=== PATIENT | female | born 1935 | race Caucasian/White ===

== ENCOUNTER 2024-06-04 13:21 | Emergency (ER) | payer MEDICARE, OTHER ==
[~2024-06-04] VITALS: Ht 160 cm; Wt 54.2 kg
[2024-06-04 15:17] VITALS: TEMP 98
[2024-06-04 15:27] LABS: BASOPHILS # (AUTO) 0.1 X10'3 (0-0.2); BASOPHILS % (AUTO) 0.8 % (0-1); EOSINOPHILS # (AUTO) 0.5 X10'3 (0-0.9); EOSINOPHILS % (AUTO) 5.8 % (0-6); HEMATOCRIT 33.7 % (35.0-45.0); LYMPHOCYTES # (AUTO) 2.8 X10'3 (1.1-4.8); LYMPHOCYTES % (AUTO) 29.5 % (21-51); MEAN CORPUSCULAR HEMOGLOBIN 28.6 PG (27.0-31.0); MEAN CORPUSCULAR HGB CONC 32.6 g/dL (33.0-36.5); MEAN CORPUSCULAR VOLUME 87.9 FL (78-98); MEAN PLATELET VOLUME 6.5 FL (7.4-10.4); MONOCYTES # (AUTO) 1.1 X10'3 (0-0.9); MONOCYTES % (AUTO) 11.3 % (2-12); NEUTROPHILS # (AUTO) 4.9 X10'3 (1.8-7.7); NEUTROPHILS % (AUTO) 52.6 % (42-75); PLATELET COUNT 318 X10'3 (140-440); RED BLOOD COUNT 3.83 X10'6 (4.20-5.60); RED CELL DISTRIBUTION WIDTH 16.2 % (11.5-14.5); WHITE BLOOD COUNT 9.3 X10'3 (4.5-11.0)
[2024-06-04 15:57] LABS: ALBUMIN 3.6 G/DL (3.4-5.0); ANION GAP 5 (8-16); BLOOD UREA NITROGEN 41 MG/DL (7-18); BUN/CREATININE RATIO 36.9 (10.0-20.0); CALCIUM 9.5 MG/DL (8.5-10.1); CHLORIDE 101 MMOL/L (99-107); CREATININE 1.11 MG/DL (0.40-0.90); GLUCOSE 95 MG/DL (70-104); POTASSIUM 5.3 MMOL/L (3.5-5.1); PRO BRAIN NATRIURETIC PEPTIDE 420 PG/ML (0-450); SODIUM 132 MMOL/L (135-145); TOTAL CARBON DIOXIDE 26.5 MMOL/L (24-32); eCRCL 30 ML/MIN; eGFR 46 ML/MIN
[2024-06-04] MEDS ORDERED: CARV6.253 PO (17:04)
[2024-06-04] MEDS ORDERED: TIOT4MIS5 INH (17:04)
[2024-06-04] MEDS ORDERED: ATOR20TA PO (17:04)
[2024-06-04] MEDS ORDERED: PANT-47 PO (17:04)
[2024-06-04] MEDS ORDERED: DONE-46 PO (17:04)
[2024-06-04] MEDS ORDERED: ADV50500 INH (17:04)
[2024-06-04] MEDS ORDERED: MONT-40 PO (17:04)
[2024-06-04] MEDS: normal saline 1000ML IV soln IVB ONE (17:05)
[2024-06-04 17:09] VITALS: BP 101/83; PULSE 57; RESP 18; O2SAT 95
== END 2024-06-04 17:09 | disposition home or self-care (01) ==
LOC: ER 13:22
DX: E86.0 Dehydration (principal); R00.1 Bradycardia, unspecified; I25.10 Atherosclerotic heart disease of native coronary artery without angina pectoris; E78.00 Pure hypercholesterolemia, unspecified; Z88.2 Allergy status to sulfonamides; Z79.899 Other long term (current) drug therapy; Z79.51 Long term (current) use of inhaled steroids; Z95.1 Presence of aortocoronary bypass graft; Z98.890 Other specified postprocedural states
CPT/HCPCS: 36415; 71045; 80048; 83880; 84484; 85025; 93005; 99285

== ENCOUNTER 2024-07-20 17:32 | Inpatient (IN) | payer MEDICARE, OTHER ==
[~2024-07-20] VITALS: Ht 162.6 cm; Wt 54.5 kg
[~2024-07-20 17:32] MED LIST: ADV50500 INH; ATOR20TA PO; CARV6.253 PO; DONE-46 PO; MONT-40 PO; PANT-47 PO; TIOT4MIS5 INH
[2024-07-20 18:07] LABS: BASOPHILS % (AUTO) 0.2 % (0-1); EOSINOPHILS # (AUTO) 0.4 X10'3 (0-0.9); HEMATOCRIT 32.3 % (35.0-45.0); HEMOGLOBIN 10.2 g/dl (12.0-16.0); LYMPHOCYTES # (AUTO) 1.8 X10'3 (1.1-4.8); LYMPHOCYTES % (AUTO) 9.9 % (21-51); MEAN CORPUSCULAR HEMOGLOBIN 28.2 PG (27.0-31.0); MEAN CORPUSCULAR HGB CONC 31.6 g/dL (33.0-36.5); MEAN CORPUSCULAR VOLUME 89.4 FL (78-98); MEAN PLATELET VOLUME 6.9 FL (7.4-10.4); MONOCYTES # (AUTO) 1.5 X10'3 (0-0.9); MONOCYTES % (AUTO) 8.5 % (2-12); NEUTROPHILS # (AUTO) 14.3 X10'3 (1.8-7.7); NEUTROPHILS % (AUTO) 79.4 % (42-75); PLATELET COUNT 318 X10'3 (140-440); RED BLOOD COUNT 3.62 X10'6 (4.20-5.60)
[2024-07-20 18:42] LABS: ALBUMIN 2.8 G/DL (3.4-5.0); ANION GAP 13 (8-16); BLOOD UREA NITROGEN 28 MG/DL (7-18); BUN/CREATININE RATIO 26.7 (10.0-20.0); CALCIUM 8.5 MG/DL (8.5-10.1); CHLORIDE 97 MMOL/L (99-107); CREATININE 1.05 MG/DL (0.40-0.90); GLUCOSE 133 MG/DL (70-104); PRO BRAIN NATRIURETIC PEPTIDE 1179 PG/ML (0-450); SODIUM 131 MMOL/L (135-145); TOTAL CARBON DIOXIDE 21.3 MMOL/L (24-32); eCRCL 33 ML/MIN; eGFR 50 ML/MIN
[2024-07-20 20:15] LABS: BILIRUBIN,URINE NEGATIVE (Neg); CLARITY,URINE SLIGHTLY CLOUDY (Clear); COLOR,URINE YELLOW (Yellow); GLUCOSE, URINE NEGATIVE (Neg); KETONES,URINE NEGATIVE (Neg); LEUKOCYTE ESTERASE ,URINE MODERATE (Neg); NITRITES, URINE NEGATIVE (Neg); OCCULT BLOOD,URINE TRACE-INTACT (Neg); PROTEIN,URINE NEGATIVE (Neg); UROBILINOGEN,URINE 0.2 E.U/dL (0.2-1.0)
[2024-07-20] MEDS: ondansetron/PF 4mg/2ml inj IV ONE (20:15)
[2024-07-20] MEDS: normal saline 1000ml 1,000 ML IV ONE (20:21)
[2024-07-20 20:22] LABS: UA COLLECTION TYPE CLN CATCH MIDSTREAM
[2024-07-20 20:25] LABS: BACTERIA,URINE 1+ /HPF (Neg); MUCUS STRANDS FEW /LPF (Neg); RBC,URINE 0-2 /HPF (0-2); SQUAMOUS EPITHELIAL CELL,UR MODERATE /LPF (FEW); TRANSITIONAL EPI CELLS,URINE FEW /HPF; WBC CLUMPS,URINE FEW /HPF (NEGATIVE)
[2024-07-20] MEDS ORDERED: ipratropium/albuterol 3ml nebule NEB PRN (20:55)
[2024-07-20] MEDS ORDERED: acetaminophen 325mg tablet PO PRN (20:55)
[2024-07-20] MEDS ORDERED: morphine 2 MG/ML inj. syringe IV PRN (20:55)
[2024-07-20] MEDS ORDERED: potassium Cl 20 mEq SR tablet PO PRN ×2 (20:55)
[2024-07-20] MEDS ORDERED: magnesium sulf-water 2g/50mL 50 ML IV PRN (20:55)
[2024-07-20] MEDS ORDERED: mag hydrox/Alum hydrox/simeth 30ml oral suspension PO PRN (20:55)
[2024-07-20] MEDS ORDERED: magnesium sulf-water 4G/100mL 100 ML IV PRN (20:55)
[2024-07-20] MEDS ORDERED: magnesium Cl slow-release 64mg tablet PO PRN (20:55)
[2024-07-20] MEDS ORDERED: magnesium hydroxide 30ml (MOM) UD suspension PO PRN (20:55)
[2024-07-20] MEDS ORDERED: potassium Cl 40MEQ/1/2NS 520ml 520 ML IV PRN (20:55)
[2024-07-20] MEDS ORDERED: ondansetron/PF 4mg/2ml inj IV PRN (20:55)
[2024-07-20] MEDS: CefTRIAXone/D5W-Rocephin 1gm 50 ML IV ONE (21:00)
[2024-07-20 21:36] LABS: MAGNESIUM 1.6 MG/DL (1.5-2.4); PHOSPHORUS 2.5 MG/DL (2.3-4.5)
[2024-07-20 21:50] VITALS: PULSE 89; RESP 18; O2SAT 94
[2024-07-20] MEDS: normal saline 1000ml 1,000 ML IV SCH (22:09)
[2024-07-20] MEDS: predniSONE 20 mg tablet PO SCH (22:10)
[2024-07-20] MEDS: azithromycin/NS 500mg/250ml 250 ML IV ONE (22:10)
[2024-07-21] VITALS (18 sets, daily range): BP systolic 136–151; BP diastolic 45–46; PULSE 66–91; RESP 14–22; TEMP 97.2–98.6; O2SAT 91–97
[2024-07-21] MEDS: ipratropium/albuterol 3ml nebule NEB SCH ×2 (00:13→11:53)
[2024-07-21] MEDS: ipratropium 0.5 MG/2.5ML nebule NEB SCH ×2 (03:00→11:49)
[2024-07-21 03:11] LABS: BASOPHILS % (AUTO) 0.2 % (0-1); EOSINOPHILS % (AUTO) 0 % (0-6); HEMATOCRIT 29.5 % (35.0-45.0); HEMOGLOBIN 9.4 g/dl (12.0-16.0); LYMPHOCYTES # (AUTO) 1.1 X10'3 (1.1-4.8); MEAN CORPUSCULAR HEMOGLOBIN 28.4 PG (27.0-31.0); MEAN CORPUSCULAR HGB CONC 31.9 g/dL (33.0-36.5); MEAN CORPUSCULAR VOLUME 89.3 FL (78-98); MEAN PLATELET VOLUME 7.2 FL (7.4-10.4); MONOCYTES % (AUTO) 5.7 % (2-12); NEUTROPHILS # (AUTO) 16.2 X10'3 (1.8-7.7); NEUTROPHILS % (AUTO) 88.1 % (42-75); PLATELET COUNT 293 X10'3 (140-440); RED CELL DISTRIBUTION WIDTH 15.4 % (11.5-14.5); WHITE BLOOD COUNT 18.4 X10'3 (4.5-11.0)
[2024-07-21 03:17] LABS: ALBUMIN 2.4 G/DL (3.4-5.0); ANION GAP 8 (8-16); BLOOD UREA NITROGEN 20 MG/DL (7-18); BUN/CREATININE RATIO 25.6 (10.0-20.0); CALCIUM 8.3 MG/DL (8.5-10.1); CHLORIDE 103 MMOL/L (99-107); CREATININE 0.78 MG/DL (0.40-0.90); GLUCOSE 134 MG/DL (70-104); POTASSIUM 4.7 MMOL/L (3.5-5.1); SODIUM 133 MMOL/L (135-145); TOTAL CARBON DIOXIDE 21.9 MMOL/L (24-32); eCRCL 44 ML/MIN; eGFR 70 ML/MIN
[2024-07-21] MEDS: SALMETEROL IH SCH (08:00)
[2024-07-21] MEDS: K and/or MAG REPLACEMENT MC SCH (08:00)
[2024-07-21] MEDS: FLUTICASONE IH SCH (08:00)
[2024-07-21] MEDS: CefTRIAXone/D5W-Rocephin 1gm 50 ML IV SCH (09:45)
[2024-07-21] MEDS: heparin, porcine 5000 units/ml vial SQ SCH (09:46)
[2024-07-21] MEDS: pantoprazole 40mg Tablet.DR PO SCH (09:46)
[2024-07-21] MEDS: carvedilol 6.25mg tablet PO SCH (09:46)
[2024-07-21] MEDS: azithromycin 250mg tablet PO SCH (10:04)
[2024-07-21] MEDS: donepezil 5mg tablet PO SCH (21:47)
[2024-07-21] MEDS: atorvastatin 20mg tablet PO SCH (21:48)
[2024-07-22] VITALS (9 sets, daily range): BP systolic 176–186; BP diastolic 63–66; PULSE 62–82; RESP 16–24; O2SAT 88–95
[2024-07-22] MEDS: morphine 2 MG/ML inj. syringe IV PRN (01:29)
[2024-07-22] MEDS ORDERED: guaiFENesin/DM 10ml UD oral syrup PO PRN (01:40)
[2024-07-22 07:05] LABS: BASOPHILS % (AUTO) 0.1 % (0-1); EOSINOPHILS % (AUTO) 0 % (0-6); HEMATOCRIT 26.1 % (35.0-45.0); HEMOGLOBIN 8.5 g/dl (12.0-16.0); LYMPHOCYTES # (AUTO) 1.1 X10'3 (1.1-4.8); LYMPHOCYTES % (AUTO) 6.7 % (21-51); MEAN CORPUSCULAR HEMOGLOBIN 28.6 PG (27.0-31.0); MEAN CORPUSCULAR HGB CONC 32.6 g/dL (33.0-36.5); MONOCYTES # (AUTO) 0.7 X10'3 (0-0.9); MONOCYTES % (AUTO) 4.1 % (2-12); NEUTROPHILS % (AUTO) 89.1 % (42-75); PLATELET COUNT 312 X10'3 (140-440); RED BLOOD COUNT 2.96 X10'6 (4.20-5.60); WHITE BLOOD COUNT 16.8 X10'3 (4.5-11.0)
[2024-07-22 07:18] LABS: ALBUMIN 2.3 G/DL (3.4-5.0); ANION GAP 8 (8-16); BLOOD UREA NITROGEN 18 MG/DL (7-18); BUN/CREATININE RATIO 23.4 (10.0-20.0); CALCIUM 8.4 MG/DL (8.5-10.1); CHLORIDE 108 MMOL/L (99-107); CREATININE 0.77 MG/DL (0.40-0.90); GLUCOSE 152 MG/DL (70-104); POTASSIUM 4.5 MMOL/L (3.5-5.1); SODIUM 137 MMOL/L (135-145); TOTAL CARBON DIOXIDE 21.2 MMOL/L (24-32); eCRCL 44 ML/MIN; eGFR 71 ML/MIN
[2024-07-22] MEDS: LIDOcaine 5% patch TP SCH (08:00)
[2024-07-22] MEDS: azithromycin 250mg tablet PO SCH (08:00)
[2024-07-22] MEDS: amLODIPine 5mg tablet PO SCH (10:08)
[2024-07-22] MEDS ORDERED: NOR5T PO (12:13)
[2024-07-22] MEDS ORDERED: CEFD300C3 PO (12:13)
[2024-07-22] MEDS ORDERED: PRED20TA PO (12:13)
[2024-07-22] MEDS ORDERED: AZI25OT PO (12:13)
[2024-07-22] MEDS ORDERED: LACT1CAP26 PO (12:13)
== END 2024-07-22 15:16 | disposition home or self-care (01) | DRG 871 ==
LOC: ER 17:33 → ED HOLD 21:01 → ORTHO 4S 07-21 07:07
PROVIDERS: ADMIT Internal Medicine Critical Care Medicine; ATTEND Family Medicine
DX: A41.9 Sepsis, unspecified organism (principal); J18.9 Pneumonia, unspecified organism; J96.21 Acute and chronic respiratory failure with hypoxia; M48.56XA Collapsed vertebra, not elsewhere classified, lumbar region, initial encounter for fracture; J44.0 Chronic obstructive pulmonary disease with (acute) lower respiratory infection; J44.1 Chronic obstructive pulmonary disease with (acute) exacerbation; K21.9 Gastro-esophageal reflux disease without esophagitis; E78.00 Pure hypercholesterolemia, unspecified; E86.0 Dehydration; I25.10 Atherosclerotic heart disease of native coronary artery without angina pectoris; Z20.822 Contact with and (suspected) exposure to COVID-19; T21.24XA Burn of second degree of lower back, initial encounter; X08.8XXA Exposure to other specified smoke, fire and flames, initial encounter; Y93.89 Activity, other specified; Y92.89 Other specified places as the place of occurrence of the external cause; Y99.8 Other external cause status; Z88.2 Allergy status to sulfonamides; Z79.899 Other long term (current) drug therapy; Z95.1 Presence of aortocoronary bypass graft
CPT/HCPCS: 36415; 71046; 72148; 74176; 80048; 81001; 83605; 83735; 83880; 84100; 84145; 84484; 85025; 87040; 87088; 87502; 87503; 87811; 94640; 94760; 97116; 97161; 97530; 99285; A4615; A6212; A6223; G0378; J0456; J0696; J1644; J2270; J7030; J7512

== ENCOUNTER 2024-07-27 18:53 | Inpatient (IN) | payer MEDICARE, OTHER ==
[~2024-07-27] VITALS: Ht 162.6 cm; Wt 56.4 kg
[~2024-07-27 18:53] MED LIST changes: +AZI25OT PO; +CEFD300C3 PO; +LACT1CAP26 PO; +NOR5T PO; +PRED20TA PO
[2024-07-27 19:31] LABS: BASOPHILS # (AUTO) 0.1 X10'3 (0-0.2); BASOPHILS % (AUTO) 0.6 % (0-1); EOSINOPHILS # (AUTO) 0.9 X10'3 (0-0.9); EOSINOPHILS % (AUTO) 6.7 % (0-6); HEMATOCRIT 28.6 % (35.0-45.0); HEMOGLOBIN 9.3 g/dl (12.0-16.0); LYMPHOCYTES % (AUTO) 15.6 % (21-51); MEAN CORPUSCULAR HEMOGLOBIN 28.5 PG (27.0-31.0); MEAN CORPUSCULAR HGB CONC 32.4 g/dL (33.0-36.5); MEAN CORPUSCULAR VOLUME 87.9 FL (78-98); MEAN PLATELET VOLUME 6.1 FL (7.4-10.4); MONOCYTES # (AUTO) 1.3 X10'3 (0-0.9); NEUTROPHILS # (AUTO) 8.7 X10'3 (1.8-7.7); NEUTROPHILS % (AUTO) 67.1 % (42-75); PLATELET COUNT 416 X10'3 (140-440); RED BLOOD COUNT 3.26 X10'6 (4.20-5.60); RED CELL DISTRIBUTION WIDTH 15.1 % (11.5-14.5); WHITE BLOOD COUNT 12.9 X10'3 (4.5-11.0)
[2024-07-27 19:47] LABS: ALANINE AMINOTRANSFERASE 23 U/L (12-78); ALBUMIN 2.5 G/DL (3.4-5.0); ALBUMIN/GLOBULIN RATIO 0.7 (1.1-1.5); ALKALINE PHOSPHATASE 85 IU/L (46-116); ANION GAP 7 (8-16); ASPARTATE AMINO TRANSFERASE 14 U/L (10-37); BILIRUBIN,TOTAL 0.3 MG/DL (0.1-1.0); BLOOD UREA NITROGEN 29 MG/DL (7-18); BUN/CREATININE RATIO 27.1 (10.0-20.0); CALCIUM 8.2 MG/DL (8.5-10.1); CHLORIDE 102 MMOL/L (99-107); CREATININE 1.07 MG/DL (0.40-0.90); GLUCOSE 100 MG/DL (70-104); SODIUM 134 MMOL/L (135-145); TOTAL CARBON DIOXIDE 24.8 MMOL/L (24-32); TOTAL PROTEIN 6.2 G/DL (6.4-8.2); eCRCL 32 ML/MIN; eGFR 49 ML/MIN
[2024-07-27 19:55] LABS: PRO BRAIN NATRIURETIC PEPTIDE 1640 PG/ML (0-450)
[2024-07-27] MEDS ORDERED: iohexol 350MG/ML 100ml bottle IV ONE (20:34)
[2024-07-27] MEDS: normal saline 1000ML IV soln IVB ONE (20:59)
[2024-07-27] MEDS: acetaminophen 1,000mg/100ml IV 100 ML IV ONE (22:05)
[2024-07-27] MEDS: CefTRIAXone/D5W-Rocephin 1gm 50 ML IV ONE (22:18)
[2024-07-27] MEDS ORDERED: magnesium hydroxide 30ml (MOM) UD suspension PO PRN (22:45)
[2024-07-27] MEDS ORDERED: mag hydrox/Alum hydrox/simeth 30ml oral suspension PO PRN (22:45)
[2024-07-27] MEDS ORDERED: acetaminophen 325mg tablet PO PRN (22:45)
[2024-07-27] MEDS ORDERED: magnesium sulf-water 4G/100mL 100 ML IV PRN (22:45)
[2024-07-27] MEDS ORDERED: potassium Cl 40MEQ/1/2NS 520ml 520 ML IV PRN (22:45)
[2024-07-27] MEDS ORDERED: guaiFENesin/DM/phenylephrine syrup 120ml bottle PO PRN (22:45)
[2024-07-27] MEDS ORDERED: magnesium sulf-water 2g/50mL 50 ML IV PRN (22:45)
[2024-07-27] MEDS ORDERED: ondansetron/PF 4mg/2ml inj IV PRN (22:45)
[2024-07-27] MEDS: ipratropium/albuterol 3ml nebule NEB SCH (23:00)
[2024-07-27] MEDS: guaiFENesin/DM 10ml UD oral syrup PO PRN (23:20)
[2024-07-27] MEDS: normal saline 1000ml 1,000 ML IV SCH (23:22)
[2024-07-28] VITALS (18 sets, daily range): BP systolic 131–159; BP diastolic 35–52; PULSE 61–77; RESP 15–24; TEMP 98–99; O2SAT 93–100
[2024-07-28] MEDS: piperacillin/tazo 4.5gm/100ml 100 ML IV SCH (04:46)
[2024-07-28] MEDS ORDERED: PERFLUTREN PROTEIN-A MICROSPHR (Optison) 0.22 MG/ML 3ML VIAL IV ONE (07:10)
[2024-07-28 07:46] LABS: BASOPHILS % (AUTO) 0.4 % (0-1); EOSINOPHILS # (AUTO) 1.1 X10'3 (0-0.9); EOSINOPHILS % (AUTO) 12.1 % (0-6); HEMATOCRIT 30.4 % (35.0-45.0); HEMOGLOBIN 9.7 g/dl (12.0-16.0); LYMPHOCYTES # (AUTO) 1.7 X10'3 (1.1-4.8); LYMPHOCYTES % (AUTO) 17.8 % (21-51); MEAN CORPUSCULAR HEMOGLOBIN 28.3 PG (27.0-31.0); MEAN CORPUSCULAR HGB CONC 31.9 g/dL (33.0-36.5); MEAN CORPUSCULAR VOLUME 88.8 FL (78-98); MEAN PLATELET VOLUME 6.3 FL (7.4-10.4); MONOCYTES # (AUTO) 1.1 X10'3 (0-0.9); MONOCYTES % (AUTO) 12.1 % (2-12); NEUTROPHILS # (AUTO) 5.4 X10'3 (1.8-7.7); NEUTROPHILS % (AUTO) 57.6 % (42-75); PLATELET COUNT 438 X10'3 (140-440); RED BLOOD COUNT 3.42 X10'6 (4.20-5.60); RED CELL DISTRIBUTION WIDTH 15.2 % (11.5-14.5); WHITE BLOOD COUNT 9.4 X10'3 (4.5-11.0)
[2024-07-28 07:51] LABS: ALANINE AMINOTRANSFERASE 20 U/L (12-78); ALBUMIN 2.3 G/DL (3.4-5.0); ALBUMIN/GLOBULIN RATIO 0.6 (1.1-1.5); ALKALINE PHOSPHATASE 78 IU/L (46-116); ANION GAP 11 (8-16); ASPARTATE AMINO TRANSFERASE 15 U/L (10-37); BILIRUBIN,TOTAL 0.3 MG/DL (0.1-1.0); BLOOD UREA NITROGEN 21 MG/DL (7-18); BUN/CREATININE RATIO 21.9 (10.0-20.0); CALCIUM 8.3 MG/DL (8.5-10.1); CHLORIDE 102 MMOL/L (99-107); CREATININE 0.96 MG/DL (0.40-0.90); GLUCOSE 99 MG/DL (70-104); MAGNESIUM 1.5 MG/DL (1.5-2.4); POTASSIUM 3.7 MMOL/L (3.5-5.1); SODIUM 139 MMOL/L (135-145); TOTAL CARBON DIOXIDE 25.9 MMOL/L (24-32); TOTAL PROTEIN 6.2 G/DL (6.4-8.2); eCRCL 36 ML/MIN; eGFR 55 ML/MIN
[2024-07-28] MEDS: amLODIPine 5mg tablet PO SCH (08:00)
[2024-07-28] MEDS: carvedilol 6.25mg tablet PO SCH (08:00)
[2024-07-28] MEDS: K and/or MAG REPLACEMENT MC SCH (08:00)
[2024-07-28] MEDS ORDERED: CefTRIAXone 2gm/D5W 50ml BAG 50 ML IV SCH (08:00)
[2024-07-28] MEDS: docusate sod 100mg capsule PO SCH (08:22)
[2024-07-28] MEDS: furosemide 40mg/4ml inj IV SCH (08:22)
[2024-07-28] MEDS: pantoprazole 40mg Tablet.DR PO SCH (08:22)
[2024-07-28] MEDS: prednisone 10mg tablet PO SCH (08:23)
[2024-07-28] MEDS: CefTRIAXone 2gm/D5W 50ml BAG 50 ML IV SCH (12:53)
[2024-07-28] MEDS: atorvastatin 20mg tablet PO SCH (20:58)
[2024-07-28] MEDS: enoxaparin 40mg/0.4ml syringe SQ SCH (21:02)
[2024-07-28] MEDS: donepezil 5mg tablet PO SCH (21:47)
[2024-07-28] MEDS: Melatonin 3mg tablet PO SCH (23:50)
[2024-07-29] VITALS (8 sets, daily range): BP systolic 133–134; BP diastolic 43–50; PULSE 60–68; RESP 13–24; TEMP 97.7–98.1; O2SAT 88–99
[2024-07-29] MEDS: montelukast 10mg tablet PO SCH (00:39)
[2024-07-29] MEDS: gabapentin 100mg capsule PO SCH (00:40)
[2024-07-29] MEDS: Melatonin 3mg tablet PO ONE (00:40)
[2024-07-29] MEDS: gabapentin 100mg capsule PO ONE (00:43)
[2024-07-29 07:09] LABS: BASOPHILS % (AUTO) 0.3 % (0-1); EOSINOPHILS # (AUTO) 0.1 X10'3 (0-0.9); EOSINOPHILS % (AUTO) 1.4 % (0-6); HEMATOCRIT 26.4 % (35.0-45.0); HEMOGLOBIN 8.8 g/dl (12.0-16.0); LYMPHOCYTES # (AUTO) 2.2 X10'3 (1.1-4.8); LYMPHOCYTES % (AUTO) 30.1 % (21-51); MEAN CORPUSCULAR HGB CONC 33.2 g/dL (33.0-36.5); MEAN CORPUSCULAR VOLUME 87.3 FL (78-98); MEAN PLATELET VOLUME 6.3 FL (7.4-10.4); MONOCYTES # (AUTO) 0.9 X10'3 (0-0.9); MONOCYTES % (AUTO) 11.6 % (2-12); NEUTROPHILS # (AUTO) 4.2 X10'3 (1.8-7.7); NEUTROPHILS % (AUTO) 56.6 % (42-75); PLATELET COUNT 411 X10'3 (140-440); RED BLOOD COUNT 3.03 X10'6 (4.20-5.60); WHITE BLOOD COUNT 7.4 X10'3 (4.5-11.0)
[2024-07-29 07:30] LABS: ALANINE AMINOTRANSFERASE 19 U/L (12-78); ALBUMIN 2.3 G/DL (3.4-5.0); ALBUMIN/GLOBULIN RATIO 0.6 (1.1-1.5); ALKALINE PHOSPHATASE 70 IU/L (46-116); ANION GAP 10 (8-16); ASPARTATE AMINO TRANSFERASE 17 U/L (10-37); BILIRUBIN,TOTAL 0.3 MG/DL (0.1-1.0); BLOOD UREA NITROGEN 18 MG/DL (7-18); BUN/CREATININE RATIO 17.8 (10.0-20.0); CALCIUM 8.1 MG/DL (8.5-10.1); CHLORIDE 102 MMOL/L (99-107); CREATININE 1.01 MG/DL (0.40-0.90); GLUCOSE 113 MG/DL (70-104); MAGNESIUM 1.4 MG/DL (1.5-2.4); POTASSIUM 3.3 MMOL/L (3.5-5.1); SODIUM 137 MMOL/L (135-145); TOTAL CARBON DIOXIDE 24.9 MMOL/L (24-32); TOTAL PROTEIN 6.2 G/DL (6.4-8.2); eCRCL 34 ML/MIN; eGFR 52 ML/MIN
[2024-07-29] MEDS: magnesium Cl slow-release 64mg tablet PO PRN (08:52)
[2024-07-29] MEDS: potassium Cl 20 mEq SR tablet PO PRN ×2 (08:52→13:33)
[2024-07-29] MEDS: furosemide 20 MG/2 ML vial IV SCH (09:40)
[2024-07-29] MEDS ORDERED: LEVO-65 PO (12:05)
[2024-07-29] MEDS ORDERED: FURO-150 PO (12:05)
[2024-07-29] MEDS ORDERED: PRED10TA23 PO (12:05)
[2024-07-29] MEDS ORDERED: gabapentin 100mg capsule PO SCH (21:00)
== END 2024-07-29 13:37 | disposition home or self-care (01) | DRG 291 ==
LOC: ER 18:54 → ED HOLD 22:56 → ORTHO 4S 07-28 06:57
PROVIDERS: ADMIT Internal Medicine Critical Care Medicine; ATTEND Internal Medicine
PROC: B32T1ZZ Computerized Tomography (CT Scan) of Left Pulmonary Artery using Low Osmolar Contrast (ICD-10-PCS; principal; 2024-07-27)
PROC: B3201ZZ Computerized Tomography (CT Scan) of Thoracic Aorta using Low Osmolar Contrast (ICD-10-PCS; 2024-07-27)
PROC: B32S1ZZ Computerized Tomography (CT Scan) of Right Pulmonary Artery using Low Osmolar Contrast (ICD-10-PCS; 2024-07-27)
PROC: 02HV33Z Insertion of Infusion Device into Superior Vena Cava, Percutaneous Approach (ICD-10-PCS; 2024-07-27)
PROC: B548ZZA Ultrasonography of Superior Vena Cava, Guidance (ICD-10-PCS; 2024-07-27)
DX: I11.0 Hypertensive heart disease with heart failure (principal); I50.31 Acute diastolic (congestive) heart failure; J96.01 Acute respiratory failure with hypoxia; J44.89 Other specified chronic obstructive pulmonary disease; J68.3 Other acute and subacute respiratory conditions due to chemicals, gases, fumes and vapors; E78.5 Hyperlipidemia, unspecified; I25.10 Atherosclerotic heart disease of native coronary artery without angina pectoris; Z20.822 Contact with and (suspected) exposure to COVID-19; F03.A0 Unspecified dementia, mild, without behavioral disturbance, psychotic disturbance, mood disturbance, and anxiety; Z96.653 Presence of artificial knee joint, bilateral; K21.9 Gastro-esophageal reflux disease without esophagitis; Z88.2 Allergy status to sulfonamides; Z79.899 Other long term (current) drug therapy; Z95.1 Presence of aortocoronary bypass graft; Z90.710 Acquired absence of both cervix and uterus; J44.9 Chronic obstructive pulmonary disease, unspecified
CPT/HCPCS: 36415; 71045; 71275; 80053; 83605; 83735; 83880; 84132; 84145; 84484; 85025; 87040; 87081; 87811; 93005; 93306; 94640; 94760; 97110; 97161; 97530; 99285; A4615; G0378; J0131; J0696; J1650; J1940; J2543; J7030; J7512; Q9967